=== PATIENT | male | born 1970 | race African-American/Black ===

== ENCOUNTER 2021-12-08 22:53 | Inpatient (IN) | payer OTHER ==
[2021-12-09] MEDS ORDERED: PROCHLORPERAZINE INJECTION 10 MG/2 ML VIAL IVPB ONE (01:09)
[2021-12-09] MEDS ORDERED: SODIUM CHLORIDE 0.9% 500 ML INFUS.BAG IV ONE ×2 (01:10→04:05)
[2021-12-09] MEDS ORDERED: FAMOTIDINE 20 MG/50 ML IVPB 20 MG/50 ML MG IVPB ONE (01:10)
[2021-12-09] MEDS ORDERED: ACETAMINOPHEN 1000 MG/100 ML BAG IVPB ONE (01:10)
[2021-12-09] MEDS ORDERED: VANCOMYCIN 1 GM in D5W (PRE-DOCKED) 1,000 MG/250 ML IVPB ONE (01:11)
[2021-12-09] MEDS ORDERED: CEFEPIME HCL/D5W 2 GM/50 ML BAG IVPB ONE (01:11)
[2021-12-09] MEDS ORDERED: ACETAMINOPHEN INJECTION 100 ML IVPB ONE (01:44)
[2021-12-09 01:50] LABS: BASO % 0.3 % (0-2.0); EOS % 0.3 % (0-4.5); HEMATOCRIT 36.6 % (35.4-49); HEMOGLOBIN 12.2 GM/dL (11.7-16.9); LYMPH % 8.6 % (8-40); MCH 23.8 pg (25.7-33.7); MCHC 33.3 g/dl (32.0-35.9); MEAN CELL VOLUME 71.6 fl (80-96); MONO % 10.4 % (3.8-10.2); NEUT % 80.4 % (42.8-82.8); PLATELET COUNT 507 10^3/uL (134-434); RBC 5.11 M/mm3 (4.00-5.60); RDW 14.9 % (11.9-15.9); WHITE BLOOD COUNT 15.4 K/mm3 (4.0-10.0)
[2021-12-09 02:10] LABS: INR 1.4 (0.83-1.09); PROTHROMBIN TIME (PATIENT) 16.1 SEC (9.7-13.0)
[2021-12-09 02:11] LABS: BLOOD UREA NITROGEN 18.7 mg/dL (7-18); CALCIUM 9.5 mg/dL (8.5-10.1)
[2021-12-09 02:12] LABS: ACTIVATED PTT 26.7 SECONDS (25.2-36.5); ALBUMIN 2.8 g/dl (3.4-5.0)
[2021-12-09 02:15] LABS: CREATININE 1.2 mg/dL (0.55-1.3)
[2021-12-09 02:16] LABS: BILIRUBIN,TOTAL 0.8 mg/dL (0.2-1); TOT PROT 8.3 g/dl (6.4-8.2)
[2021-12-09] MEDS ORDERED: FAMOTIDINE 10 MG/ML VIAL IVPB ONE (02:45)
[2021-12-09 02:49] LABS: ERYTHROCYTE SEDIMENTATION RATE 73 mm/hr (0-20)
[2021-12-09] MEDS ORDERED: CEFEPIME 2 GM/100 ML BAG IVPB ONE (03:49)
[2021-12-09] MEDS ORDERED: SODIUM CHLORIDE 1,000 ML IV STA (04:34)
[2021-12-09] MEDS ORDERED: VANCOMYCIN 1 GRAM (PRE-DOCKED) 1,000 MG/250 ML BAG IVPB ONE (04:35)
[2021-12-09] MEDS ORDERED: ACETAMINOPHEN 325 MG TABLET (FP) PO PRN (04:39)
[2021-12-09 06:41] LABS: BASO % 0.8 % (0-2.0); EOS % 0.8 % (0-4.5); HEMATOCRIT 32.8 % (35.4-49); HEMOGLOBIN 10.6 GM/dL (11.7-16.9); LYMPH % 13.1 % (8-40); MCH 23.5 pg (25.7-33.7); MCHC 32.5 g/dl (32.0-35.9); MEAN CELL VOLUME 72.5 fl (80-96); NEUT % 74.3 % (42.8-82.8); PLATELET COUNT 497 10^3/uL (134-434); RBC 4.52 M/mm3 (4.00-5.60); RDW 15.2 % (11.9-15.9); WHITE BLOOD COUNT 14.4 K/mm3 (4.0-10.0)
[2021-12-09 07:04] LABS: CALCIUM 8.9 mg/dL (8.5-10.1)
[2021-12-09 07:06] LABS: ALBUMIN 2.3 g/dl (3.4-5.0); BLOOD UREA NITROGEN 16.5 mg/dL (7-18)
[2021-12-09 07:08] LABS: TOT PROT 6.8 g/dl (6.4-8.2)
[2021-12-09 07:11] LABS: BILIRUBIN,TOTAL 0.7 mg/dL (0.2-1)
[2021-12-09] MEDS: INSULIN SLIDING SCALE (NOVOLOG) 1 VIAL SQ SCH ×4 (08:24→22:09)
[2021-12-09] MEDS ORDERED: CEFEPIME HCL/D5W 2 GM/50 ML BAG IVPB SCH (10:00)
[2021-12-09] MEDS ORDERED: ENOXAPARIN NA (PORCINE) 40 MG/0.4 ML DISP.SYRIN SQ SCH (10:00)
[2021-12-09] MEDS ORDERED: VANCOMYCIN 1 GM in D5W (PRE-DOCKED) 1,000 MG/250 ML IVPB SCH (10:00)
[2021-12-09] MEDS ORDERED: DEXTROSE 5%-WATER 100 ML IVPB ONE (10:41)
[2021-12-09] MEDS ORDERED: CEFEPIME HCL 2 GM VIAL (RESTRICTED TO ID) ONE (10:41)
[2021-12-09] MEDS: CEFEPIME 2 GM in DEXTROSE 5%-WATER 2 GM/100 ML BAG IVPB SCH ×2 (11:09→11:43)
[2021-12-09] MEDS: amLODIPine BESYLATE 10 MG TABLET (FP) PO SCH (11:11)
[2021-12-09] MEDS: LISINOPRIL 10 MG TABLET PO SCH (11:11)
[2021-12-09] MEDS: TAMSULOSIN HCL 0.4 MG CAP PO SCH (11:11)
[2021-12-09] MEDS: ASPIRIN COATED 81 MG TABLET.EC PO SCH (11:11)
[2021-12-09 11:32] VITALS: BMI 27.1
[2021-12-09] MEDS ORDERED: FLU VACC QS2021-22(6MOS UP)/PF 60 MCG/0.5 ML SYRINGE IM ONE (11:34)
[2021-12-09] MEDS ORDERED: ENOXAPARIN NA (PORCINE) 60 MG/0.6 ML DISP.SYRIN SQ ONE (12:15)
[2021-12-09] MEDS ORDERED: METOPROLOL TARTRATE 5 MG/5 ML VIAL IVPUSH PRN (13:24)
[2021-12-09] MEDS ORDERED: PIPERACILLIN/TAZOBACTAM 3.375 GM VIAL IVPB ONE (17:23)
[2021-12-09] MEDS ORDERED: DEXTROSE 5%-WATER - 50 ML IVPB ONE (17:23)
[2021-12-09] MEDS: VANCOMYCIN/WATER FOR INJ (PEG) 1,000 MG/200 ML BAG IVPB SCH (17:27)
[2021-12-09] MEDS: Insulin (LOG) Aspart 100 UNITS/ML VIAL SQ SCH (17:28)
[2021-12-09] MEDS: PIPERACILLIN/TAZOB 3.375 GM 3.375 GM in DEXTROSE 5%-WATER - 50 ML IVPB SCH (19:09)
[2021-12-09] MEDS ORDERED: INSULIN (LEVEMIR) 100 UNITS/ML UNITS SQ SCH (22:00)
[2021-12-09] MEDS: INSULIN (LEVEMIR) 100 UNITS/ML UNITS SQ SCH (22:11)
[2021-12-09] MEDS: ENOXAPARIN NA (PORCINE) 100 MG/1 ML DISP.SYRIN SQ SCH (22:17)
[2021-12-09] MEDS: ATORVASTATIN CA 40 MG TABLET (FP) PO SCH (22:18)
[2021-12-10] MEDS ORDERED: PIPERACILLIN/TAZOBACTAM 3.375 GM VIAL IVPB ONE ×4 (02:28→18:23)
[2021-12-10] MEDS ORDERED: DEXTROSE 5%-WATER - 50 ML IVPB ONE ×3 (02:29→16:58)
[2021-12-10] MEDS: PIPERACILLIN/TAZOB 3.375 GM 3.375 GM in DEXTROSE 5%-WATER - 50 ML IVPB SCH ×3 (06:12→18:18)
[2021-12-10] MEDS: VANCOMYCIN/WATER FOR INJ (PEG) 1,000 MG/200 ML BAG IVPB SCH ×2 (06:13→17:03)
[2021-12-10] MEDS: INSULIN SLIDING SCALE (NOVOLOG) 1 VIAL SQ SCH ×4 (06:25→22:39)
[2021-12-10] MEDS: Insulin (LOG) Aspart 100 UNITS/ML VIAL SQ SCH ×3 (06:26→17:02)
[2021-12-10] MEDS: INSULIN (LEVEMIR) 100 UNITS/ML UNITS SQ SCH ×2 (06:27→22:38)
[2021-12-10 06:52] LABS: BASO % 1.2 % (0-2.0); EOS % 2.3 % (0-4.5); HEMATOCRIT 32.7 % (35.4-49); HEMOGLOBIN 10.5 GM/dL (11.7-16.9); LYMPH % 17.6 % (8-40); MCH 23.4 pg (25.7-33.7); MCHC 32.2 g/dl (32.0-35.9); MEAN CELL VOLUME 72.9 fl (80-96); MONO % 10.4 % (3.8-10.2); NEUT % 68.5 % (42.8-82.8); PLATELET COUNT 471 10^3/uL (134-434); RBC 4.48 M/mm3 (4.00-5.60); RDW 14.9 % (11.9-15.9); WHITE BLOOD COUNT 9.5 K/mm3 (4.0-10.0)
[2021-12-10 07:27] LABS: ALBUMIN 2.3 g/dl (3.4-5.0); BLOOD UREA NITROGEN 12.4 mg/dL (7-18)
[2021-12-10 07:28] LABS: BILIRUBIN,TOTAL 0.5 mg/dL (0.2-1); TOT PROT 6.7 g/dl (6.4-8.2)
[2021-12-10 07:30] LABS: PHOSPHOROUS 2.7 mg/dL (2.5-4.9)
[2021-12-10 07:33] LABS: CALCIUM 8.8 mg/dL (8.5-10.1)
[2021-12-10 07:34] LABS: MAGNESIUM 2.1 mg/dL (1.8-2.4)
[2021-12-10] MEDS: ENOXAPARIN NA (PORCINE) 100 MG/1 ML DISP.SYRIN SQ SCH ×2 (09:13→22:12)
[2021-12-10] MEDS: LISINOPRIL 10 MG TABLET PO SCH (09:13)
[2021-12-10] MEDS: TAMSULOSIN HCL 0.4 MG CAP PO SCH (09:13)
[2021-12-10] MEDS: amLODIPine BESYLATE 10 MG TABLET (FP) PO SCH (09:13)
[2021-12-10] MEDS: ASPIRIN COATED 81 MG TABLET.EC PO SCH (09:13)
[2021-12-10] MEDS: ATORVASTATIN CA 40 MG TABLET (FP) PO SCH (22:12)
[2021-12-11] MEDS ORDERED: PIPERACILLIN/TAZOBACTAM 3.375 GM VIAL IVPB ONE ×2 (01:06→09:51)
[2021-12-11] MEDS ORDERED: DEXTROSE 5%-WATER - 50 ML IVPB ONE ×2 (01:07→09:51)
[2021-12-11] MEDS: PIPERACILLIN/TAZOB 3.375 GM 3.375 GM in DEXTROSE 5%-WATER - 50 ML IVPB SCH ×2 (01:12→10:08)
[2021-12-11] MEDS: VANCOMYCIN/WATER FOR INJ (PEG) 1,000 MG/200 ML BAG IVPB SCH ×2 (05:46→18:05)
[2021-12-11] MEDS: INSULIN (LEVEMIR) 100 UNITS/ML UNITS SQ SCH ×2 (06:33→21:08)
[2021-12-11] MEDS: Insulin (LOG) Aspart 100 UNITS/ML VIAL SQ SCH ×3 (06:33→16:52)
[2021-12-11] MEDS: INSULIN SLIDING SCALE (NOVOLOG) 1 VIAL SQ SCH ×4 (06:35→21:04)
[2021-12-11 07:22] LABS: BASO % 0.8 % (0-2.0); HEMATOCRIT 32.8 % (35.4-49); HEMOGLOBIN 10.8 GM/dL (11.7-16.9); LYMPH % 20.4 % (8-40); MCH 23.8 pg (25.7-33.7); MEAN CELL VOLUME 72.2 fl (80-96); MEAN PLT VOLUME 7.7 fl (7.5-11.1); MONO % 10.6 % (3.8-10.2); NEUT % 66.2 % (42.8-82.8); PLATELET COUNT 441 10^3/uL (134-434); RBC 4.55 M/mm3 (4.00-5.60); RDW 14.7 % (11.9-15.9); WHITE BLOOD COUNT 8.7 K/mm3 (4.0-10.0)
[2021-12-11 07:33] LABS: ALBUMIN 2.3 g/dl (3.4-5.0); BLOOD UREA NITROGEN 9.3 mg/dL (7-18); CALCIUM 8.7 mg/dL (8.5-10.1)
[2021-12-11 07:34] LABS: MAGNESIUM 2.1 mg/dL (1.8-2.4)
[2021-12-11 07:35] LABS: CREATININE 0.9 mg/dL (0.55-1.3); PHOSPHOROUS 2.7 mg/dL (2.5-4.9)
[2021-12-11 07:37] LABS: BILIRUBIN,TOTAL 0.6 mg/dL (0.2-1); TOT PROT 6.8 g/dl (6.4-8.2)
[2021-12-11] MEDS: TAMSULOSIN HCL 0.4 MG CAP PO SCH (09:50)
[2021-12-11] MEDS: ENOXAPARIN NA (PORCINE) 100 MG/1 ML DISP.SYRIN SQ SCH ×2 (10:05→21:08)
[2021-12-11] MEDS: amLODIPine BESYLATE 10 MG TABLET (FP) PO SCH (10:07)
[2021-12-11] MEDS: ASPIRIN COATED 81 MG TABLET.EC PO SCH (10:07)
[2021-12-11] MEDS: LISINOPRIL 10 MG TABLET PO SCH (10:08)
[2021-12-11] MEDS: ERTAPENEM SODIUM 1 GM in SODIUM CHLORIDE 50 ML IVPB SCH (14:50)
[2021-12-11] MEDS: SODIUM HYPOCHLORITE 0.5% 473 ML- BULK BOTTLE TP SCH (18:05)
[2021-12-11] MEDS: ATORVASTATIN CA 40 MG TABLET (FP) PO SCH (21:03)
[2021-12-12] MEDS: VANCOMYCIN/WATER FOR INJ (PEG) 1,000 MG/200 ML BAG IVPB SCH ×2 (05:52→17:46)
[2021-12-12] MEDS: INSULIN (LEVEMIR) 100 UNITS/ML UNITS SQ SCH ×2 (06:09→21:53)
[2021-12-12] MEDS: Insulin (LOG) Aspart 100 UNITS/ML VIAL SQ SCH ×3 (06:10→16:04)
[2021-12-12] MEDS: INSULIN SLIDING SCALE (NOVOLOG) 1 VIAL SQ SCH ×4 (06:10→21:54)
[2021-12-12 08:27] LABS: BASO % 0.9 % (0-2.0); EOS % 2.5 % (0-4.5); LYMPH % 23.5 % (8-40); MCH 23.3 pg (25.7-33.7); MCHC 32.1 g/dl (32.0-35.9); MEAN CELL VOLUME 72.5 fl (80-96); MEAN PLT VOLUME 7.6 fl (7.5-11.1); MONO % 10.2 % (3.8-10.2); NEUT % 62.9 % (42.8-82.8); PLATELET COUNT 426 10^3/uL (134-434); RBC 4.28 M/mm3 (4.00-5.60); RDW 15.2 % (11.9-15.9); WHITE BLOOD COUNT 8.9 K/mm3 (4.0-10.0)
[2021-12-12 08:59] LABS: ALBUMIN 2.3 g/dl (3.4-5.0); BLOOD UREA NITROGEN 10.6 mg/dL (7-18); MAGNESIUM 2.3 mg/dL (1.8-2.4)
[2021-12-12 09:02] LABS: PHOSPHOROUS 2.3 mg/dL (2.5-4.9)
[2021-12-12 09:03] LABS: TOT PROT 6.8 g/dl (6.4-8.2)
[2021-12-12] MEDS ORDERED: NAPH,MB-DB/K PH,MBDB POWDER PACKET PO ONE (09:44)
[2021-12-12] MEDS: TAMSULOSIN HCL 0.4 MG CAP PO SCH (10:24)
[2021-12-12] MEDS: LISINOPRIL 10 MG TABLET PO SCH (10:25)
[2021-12-12] MEDS: ENOXAPARIN NA (PORCINE) 100 MG/1 ML DISP.SYRIN SQ SCH ×2 (10:25→21:53)
[2021-12-12] MEDS: ASPIRIN COATED 81 MG TABLET.EC PO SCH (10:25)
[2021-12-12] MEDS: amLODIPine BESYLATE 5 MG TABLET (FP) PO SCH (10:25)
[2021-12-12] MEDS: ERTAPENEM SODIUM 1 GM in SODIUM CHLORIDE 50 ML IVPB SCH (11:21)
[2021-12-12] MEDS: SODIUM HYPOCHLORITE 0.5% 473 ML- BULK BOTTLE TP SCH (11:21)
[2021-12-12] MEDS: ATORVASTATIN CA 40 MG TABLET (FP) PO SCH (21:53)
[2021-12-12] MEDS ORDERED: POLYETHYLENE GLYCOL (HEALTHYLAX) 3350 17 GM PACKET PO ONE (22:06)
[2021-12-13 03:13] LABS: PH,URINE 6.5 (5.0-8.0); URINE APPEARANCE CLEAR; URINE BILIRUBIN NEGATIVE (NEGATIVE); URINE COLOR YELLOW; URINE GLUCOSE (UA) TRACE (NEGATIVE); URINE KETONE NEGATIVE (NEGATIVE); URINE LEUK ESTERASE NEGATIVE (NEGATIVE); URINE NITRITE NEGATIVE (NEGATIVE); URINE PROTEIN TRACE (NEGATIVE); URINE UROBILINOGEN 0.2 mg/dL (0.2-1.0)
[2021-12-13] MEDS: VANCOMYCIN/WATER FOR INJ (PEG) 1,000 MG/200 ML BAG IVPB SCH ×2 (05:53→17:15)
[2021-12-13] MEDS: INSULIN (LEVEMIR) 100 UNITS/ML UNITS SQ SCH ×2 (06:03→21:13)
[2021-12-13] MEDS: Insulin (LOG) Aspart 100 UNITS/ML VIAL SQ SCH ×3 (06:04→16:03)
[2021-12-13] MEDS: INSULIN SLIDING SCALE (NOVOLOG) 1 VIAL SQ SCH ×4 (06:04→21:12)
[2021-12-13 09:15] LABS: BASO % 0.8 % (0-2.0); EOS % 4.8 % (0-4.5); HEMOGLOBIN 9.3 GM/dL (11.7-16.9); LYMPH % 28.8 % (8-40); MCH 24.1 pg (25.7-33.7); MCHC 33.2 g/dl (32.0-35.9); MEAN CELL VOLUME 72.4 fl (80-96); MEAN PLT VOLUME 7.9 fl (7.5-11.1); MONO % 12.7 % (3.8-10.2); NEUT % 52.9 % (42.8-82.8); PLATELET COUNT 346 10^3/uL (134-434); RBC 3.87 M/mm3 (4.00-5.60); RDW 15.1 % (11.9-15.9); WHITE BLOOD COUNT 6.2 K/mm3 (4.0-10.0)
[2021-12-13 10:02] LABS: CREATININE 0.9 mg/dL (0.55-1.3)
[2021-12-13 10:12] LABS: BLOOD UREA NITROGEN 11.9 mg/dL (7-18)
[2021-12-13 10:15] LABS: CALCIUM 8.3 mg/dL (8.5-10.1)
[2021-12-13] MEDS: ENOXAPARIN NA (PORCINE) 100 MG/1 ML DISP.SYRIN SQ SCH ×2 (10:33→21:12)
[2021-12-13] MEDS: TAMSULOSIN HCL 0.4 MG CAP PO SCH (10:33)
[2021-12-13] MEDS: ERTAPENEM SODIUM 1 GM in SODIUM CHLORIDE 50 ML IVPB SCH (10:33)
[2021-12-13] MEDS: ASPIRIN COATED 81 MG TABLET.EC PO SCH (10:33)
[2021-12-13] MEDS: SODIUM HYPOCHLORITE 0.5% 473 ML- BULK BOTTLE TP SCH (10:33)
[2021-12-13] MEDS: amLODIPine BESYLATE 5 MG TABLET (FP) PO SCH (10:34)
[2021-12-13] MEDS: ASCORBIC ACID 500 MG TABLET (FP) PO SCH (10:40)
[2021-12-13] MEDS: MULTIVITAMINS THER W-MINERALS COMBO TABLET (FP) PO SCH (10:40)
[2021-12-13] MEDS: LISINOPRIL 10 MG TABLET PO SCH (10:40)
[2021-12-13] MEDS: ZINC SULFATE 220 MG CAPSULE (FP) PO SCH (10:40)
[2021-12-13] MEDS ORDERED: POLYETHYLENE GLYCOL (HEALTHYLAX) 3350 17 GM PACKET PO SCH (20:50)
[2021-12-13] MEDS: ATORVASTATIN CA 40 MG TABLET (FP) PO SCH (21:12)
[2021-12-13] MEDS: POLYETHYLENE GLYCOL (HEALTHYLAX) 3350 17 GM PACKET PO SCH (21:12)
[2021-12-13] MEDS: DOCUSATE SODIUM 100 MG CAPSULE (FP) PO SCH ×2 (21:12→21:13)
[2021-12-13] MEDS ORDERED: POLYETHYLENE GLYCOL (HEALTHYLAX) 3350 17 GM PACKET PO ONE (22:06)
[2021-12-14] MEDS: INSULIN (LEVEMIR) 100 UNITS/ML UNITS SQ SCH ×2 (07:09→21:04)
[2021-12-14] MEDS: INSULIN SLIDING SCALE (NOVOLOG) 1 VIAL SQ SCH ×4 (07:09→21:04)
[2021-12-14] MEDS: Insulin (LOG) Aspart 100 UNITS/ML VIAL SQ SCH ×3 (07:09→17:06)
[2021-12-14] MEDS: DOCUSATE SODIUM 100 MG CAPSULE (FP) PO SCH ×3 (07:09→21:04)
[2021-12-14 07:42] LABS: EOS % 4.4 % (0-4.5); HEMATOCRIT 27.7 % (35.4-49); HEMOGLOBIN 9.1 GM/dL (11.7-16.9); LYMPH % 28.1 % (8-40); MCH 23.8 pg (25.7-33.7); MEAN CELL VOLUME 72.2 fl (80-96); MEAN PLT VOLUME 7.6 fl (7.5-11.1); NEUT % 55.5 % (42.8-82.8); PLATELET COUNT 325 10^3/uL (134-434); RBC 3.84 M/mm3 (4.00-5.60); RDW 15.2 % (11.9-15.9); WHITE BLOOD COUNT 6.2 K/mm3 (4.0-10.0)
[2021-12-14 08:05] LABS: CALCIUM 8.3 mg/dL (8.5-10.1)
[2021-12-14 08:06] LABS: BLOOD UREA NITROGEN 11.1 mg/dL (7-18)
[2021-12-14 08:09] LABS: CREATININE 0.8 mg/dL (0.55-1.3)
[2021-12-14] MEDS: TAMSULOSIN HCL 0.4 MG CAP PO SCH (08:55)
[2021-12-14] MEDS: VANCOMYCIN/WATER FOR INJ (PEG) 1,000 MG/200 ML BAG IVPB SCH ×2 (08:55→17:06)
[2021-12-14] MEDS: SODIUM HYPOCHLORITE 0.5% 473 ML- BULK BOTTLE TP SCH (09:06)
[2021-12-14] MEDS: ASPIRIN COATED 81 MG TABLET.EC PO SCH (09:08)
[2021-12-14] MEDS: POLYETHYLENE GLYCOL (HEALTHYLAX) 3350 17 GM PACKET PO SCH (09:08)
[2021-12-14] MEDS: amLODIPine BESYLATE 5 MG TABLET (FP) PO SCH (09:09)
[2021-12-14] MEDS: ENOXAPARIN NA (PORCINE) 100 MG/1 ML DISP.SYRIN SQ SCH ×2 (09:09→21:05)
[2021-12-14] MEDS: ZINC SULFATE 220 MG CAPSULE (FP) PO SCH (09:09)
[2021-12-14] MEDS: LISINOPRIL 10 MG TABLET PO SCH (09:11)
[2021-12-14] MEDS: AMINO ACIDS/PROTEIN HYDROLYS 30 ML LIQUID.PKT PO SCH (09:12)
[2021-12-14] MEDS: MULTIVITAMINS THER W-MINERALS COMBO TABLET (FP) PO SCH (09:14)
[2021-12-14] MEDS: ASCORBIC ACID 500 MG TABLET (FP) PO SCH (09:15)
[2021-12-14] MEDS: ERTAPENEM SODIUM 1 GM in SODIUM CHLORIDE 50 ML IVPB SCH (11:40)
[2021-12-14 14:10] LABS: SARS-CoV-2 NAA Not Detected (Not Detected)
[2021-12-14] MEDS: ATORVASTATIN CA 40 MG TABLET (FP) PO SCH (21:04)
[2021-12-15] MEDS: VANCOMYCIN/WATER FOR INJ (PEG) 1,000 MG/200 ML BAG IVPB SCH ×2 (05:48→17:56)
[2021-12-15] MEDS: INSULIN (LEVEMIR) 100 UNITS/ML UNITS SQ SCH ×2 (06:00→21:57)
[2021-12-15] MEDS: INSULIN SLIDING SCALE (NOVOLOG) 1 VIAL SQ SCH ×4 (06:00→21:57)
[2021-12-15] MEDS: Insulin (LOG) Aspart 100 UNITS/ML VIAL SQ SCH ×3 (06:00→17:25)
[2021-12-15] MEDS: DOCUSATE SODIUM 100 MG CAPSULE (FP) PO SCH ×3 (06:00→21:57)
[2021-12-15] MEDS: amLODIPine BESYLATE 5 MG TABLET (FP) PO SCH ×2 (08:40→13:09)
[2021-12-15] MEDS: LISINOPRIL 10 MG TABLET PO SCH ×2 (08:40→13:10)
[2021-12-15] MEDS ORDERED: REGADENOSON 0.4 MG/5 ML PRE-FILLED SYRINGE IVPUSH ONE ×2 (10:25→10:45)
[2021-12-15] MEDS: ENOXAPARIN NA (PORCINE) 100 MG/1 ML DISP.SYRIN SQ SCH ×2 (12:53→21:58)
[2021-12-15] MEDS: ERTAPENEM SODIUM 1 GM in SODIUM CHLORIDE 50 ML IVPB SCH (12:53)
[2021-12-15] MEDS: TAMSULOSIN HCL 0.4 MG CAP PO SCH (12:55)
[2021-12-15] MEDS: ZINC SULFATE 220 MG CAPSULE (FP) PO SCH (12:55)
[2021-12-15] MEDS: MULTIVITAMINS THER W-MINERALS COMBO TABLET (FP) PO SCH (12:56)
[2021-12-15] MEDS: POLYETHYLENE GLYCOL (HEALTHYLAX) 3350 17 GM PACKET PO SCH (12:57)
[2021-12-15] MEDS: AMINO ACIDS/PROTEIN HYDROLYS 30 ML LIQUID.PKT PO SCH ×2 (12:57→17:56)
[2021-12-15] MEDS: ASPIRIN COATED 81 MG TABLET.EC PO SCH (12:57)
[2021-12-15] MEDS: ASCORBIC ACID 500 MG TABLET (FP) PO SCH (12:57)
[2021-12-15] MEDS: SODIUM HYPOCHLORITE 0.5% 473 ML- BULK BOTTLE TP SCH (17:22)
[2021-12-15] MEDS: ATORVASTATIN CA 40 MG TABLET (FP) PO SCH (21:57)
[2021-12-16] MEDS: VANCOMYCIN/WATER FOR INJ (PEG) 1,000 MG/200 ML BAG IVPB SCH ×2 (06:14→16:23)
[2021-12-16] MEDS: INSULIN (LEVEMIR) 100 UNITS/ML UNITS SQ SCH (06:14)
[2021-12-16] MEDS: DOCUSATE SODIUM 100 MG CAPSULE (FP) PO SCH ×2 (06:14→16:10)
[2021-12-16] MEDS: INSULIN SLIDING SCALE (NOVOLOG) 1 VIAL SQ SCH ×3 (06:14→17:12)
[2021-12-16] MEDS: Insulin (LOG) Aspart 100 UNITS/ML VIAL SQ SCH ×3 (06:15→17:12)
[2021-12-16 07:26] LABS: BASO % 1.1 % (0-2.0); HEMATOCRIT 30.4 % (35.4-49); HEMOGLOBIN 10.2 GM/dL (11.7-16.9); LYMPH % 28.2 % (8-40); MCHC 33.4 g/dl (32.0-35.9); MEAN CELL VOLUME 71.9 fl (80-96); MEAN PLT VOLUME 7.9 fl (7.5-11.1); MONO % 10.7 % (3.8-10.2); PLATELET COUNT 378 10^3/uL (134-434); RBC 4.23 M/mm3 (4.00-5.60); RDW 15.4 % (11.9-15.9); WHITE BLOOD COUNT 6.3 K/mm3 (4.0-10.0)
[2021-12-16 07:51] LABS: ALBUMIN 2.4 g/dl (3.4-5.0); BLOOD UREA NITROGEN 16.8 mg/dL (7-18); CREATININE 0.9 mg/dL (0.55-1.3)
[2021-12-16 07:52] LABS: BILIRUBIN,TOTAL 0.3 mg/dL (0.2-1); CALCIUM 8.4 mg/dL (8.5-10.1)
[2021-12-16 07:53] LABS: MAGNESIUM 2.3 mg/dL (1.8-2.4)
[2021-12-16 07:54] LABS: PHOSPHOROUS 3.2 mg/dL (2.5-4.9)
[2021-12-16] MEDS: AMINO ACIDS/PROTEIN HYDROLYS 30 ML LIQUID.PKT PO SCH ×2 (09:47→17:10)
[2021-12-16] MEDS: POLYETHYLENE GLYCOL (HEALTHYLAX) 3350 17 GM PACKET PO SCH (09:47)
[2021-12-16] MEDS: LISINOPRIL 10 MG TABLET PO SCH (09:47)
[2021-12-16] MEDS: ASPIRIN COATED 81 MG TABLET.EC PO SCH (09:47)
[2021-12-16] MEDS: ZINC SULFATE 220 MG CAPSULE (FP) PO SCH (09:47)
[2021-12-16] MEDS: amLODIPine BESYLATE 5 MG TABLET (FP) PO SCH (09:47)
[2021-12-16] MEDS: ENOXAPARIN NA (PORCINE) 100 MG/1 ML DISP.SYRIN SQ SCH (09:47)
[2021-12-16] MEDS: TAMSULOSIN HCL 0.4 MG CAP PO SCH (09:48)
[2021-12-16] MEDS: ASCORBIC ACID 500 MG TABLET (FP) PO SCH (09:48)
[2021-12-16] MEDS: MULTIVITAMINS THER W-MINERALS COMBO TABLET (FP) PO SCH (09:48)
[2021-12-16] MEDS: ERTAPENEM SODIUM 1 GM in SODIUM CHLORIDE 50 ML IVPB SCH (10:55)
[2021-12-16] MEDS: SODIUM HYPOCHLORITE 0.5% 473 ML- BULK BOTTLE TP SCH (12:30)
[2021-12-16 18:31] VITALS: BP 140/75; PULSE 75; TEMP 98.4
== END 2021-12-16 20:55 | DRG 344 ==
LOC: JER 22:53 → JERBED 12-09 01:12 → J4W 12-09 10:42 → J4S 12-12 15:48
PROVIDERS: ADMIT Hospitalist; ATTEND Internal Medicine
PROC: 02HV33Z Insertion of Infusion Device into Superior Vena Cava, Percutaneous Approach (ICD-10-PCS; principal; 2021-12-16)
PROC: B518ZZA Fluoroscopy of Superior Vena Cava, Guidance (ICD-10-PCS; 2021-12-16)
DX: E11.69 Type 2 diabetes mellitus with other specified complication (principal); M86.671 Other chronic osteomyelitis, right ankle and foot; E11.621 Type 2 diabetes mellitus with foot ulcer; L97.518 Non-pressure chronic ulcer of other part of right foot with other specified severity; I48.91 Unspecified atrial fibrillation; E78.5 Hyperlipidemia, unspecified; I48.92 Unspecified atrial flutter; R00.0 Tachycardia, unspecified; D72.829 Elevated white blood cell count, unspecified; B96.20 Unspecified Escherichia coli [E. coli] as the cause of diseases classified elsewhere; B95.2 Enterococcus as the cause of diseases classified elsewhere; B96.4 Proteus (mirabilis) (morganii) as the cause of diseases classified elsewhere; E11.65 Type 2 diabetes mellitus with hyperglycemia; F41.9 Anxiety disorder, unspecified; L03.115 Cellulitis of right lower limb; F12.10 Cannabis abuse, uncomplicated; E11.610 Type 2 diabetes mellitus with diabetic neuropathic arthropathy; I11.9 Hypertensive heart disease without heart failure; Z89.422 Acquired absence of other left toe(s)
CPT/HCPCS: 36415; 36569; 71045-TC-FY; 73610-TC-RT-FY; 73630-TC-RT-FY; 73720-TC; 78452-TC; 80048; 80053; 80061; 81003; 82962; 83036; 83540; 83550; 83735; 84100; 84484; 85025; 85045; 85610; 85651; 85730; 86140; 87040; 87070; 87186; 87205; 90686; 93005; 93010; 93017; 93306-TC; 93922; 93925-TC; 99285-25; A9502; A9579; C9803-CS; G0008; G0480; J2785; U0003; U0005